=== PATIENT | female | born 1975 | race Caucasian/White ===

== ENCOUNTER 2020-05-31 12:21 | Emergency (ER) | payer MEDICAID ==
[~2020-05-31] VITALS: Ht 154.9 cm; Wt 72.6 kg
[2020-05-31 12:58] VITALS: BP_SYST 152
--- NOTE | 2020-05-31 13:01 | NUR ---
Patient triaged and placed in waiting room. VSS and patient appears in no acute distress at this time. Accompanied by self , awaiting available bed, and MD notified of need for MSE.
--- NOTE | 2020-05-31 14:49 | NUR ---
Patient to ER bed 06 to gown for evaluation. Side rails up.
--- NOTE | 2020-05-31 15:05 | NUR ---
Pt brought by self, A&Ox4, pt presents to ER with rectal pain, states Hx of hemorrhoids, skin pink and warm, cap refill <3, VSS.
--- NOTE | 2020-05-31 15:15 | NUR ---
Dr Milligan evaluating patient at bedside
[2020-05-31 15:52] VITALS: BP_SYST 142
--- NOTE | 2020-05-31 15:52 | NUR ---
Patient given written and verbal discharge instructions and verbalizes understanding. ER MD discussed with patient the results and treatment provided. Patient in stable condition. ID arm band removed. No Rx given. Patient educated on pain management and to follow up with PMD. Pain Scale 310. Opportunity for questions provided and answered. Medication side effect fact sheet provided.
== END 2020-05-31 15:52 | disposition home or self-care (01) ==
LOC: SED 12:21
DX: K62.89 Other specified diseases of anus and rectum (principal)
CPT/HCPCS: 99281